=== PATIENT | female | born 1995 | race Two or more races ===

== ENCOUNTER 2023-05-28 19:30 | Emergency (ER) | payer OTHER ==
[~2023-05-28] VITALS: Ht 157.5 cm; Wt 49.9 kg
[2023-05-28] MEDS ORDERED: DEXTROSE 5 % AND 0.9 % NACL 1,000 ML IV STA (21:59)
[2023-05-28] MEDS ORDERED: ONDANSETRON HCL 2 MG/ML VIAL IV STA (22:00)
[2023-05-28] MEDS ORDERED: METOCLOPRAMIDE HCL 5 MG/ML VIAL IM STA (22:01)
[2023-05-28] MEDS ORDERED: FAMOTIDINE/PF 20 MG/2 ML VIAL IV PUSH STA (22:01)
[2023-05-28 22:32] LABS: HEMATOCRIT 39.7 % (36.0-45.00); HEMOGLOBIN 13.6 g/dL (12.0-15.00); MEAN CELL VOLUME 89.5 fL (80.00-100.00); MEAN CORPUSCULAR HEMOGLOBIN 30.5 pg (27.00-32.0); MEAN CORPUSCULAR HGB CONC 34.1 g/dl (32.0-36.0); PLATELET COUNT 310 K/uL (150-450); RED BLOOD COUNT 4.44 M/uL (4.00-6.00); RED CELL DISTRIBUTION WIDTH 13.5 % (11.5-14.5)
[2023-05-28 22:48] LABS: ALBUMIN 4.3 gm/dL (3.4-5.0); BILIRUBIN TOTAL 0.38 mg/dL (0.3-1.2); CALCIUM 9.3 mg/dL (8.5-10.1); CREATININE SERUM 0.81 mg/dL (0.55-1.02); GFR 84.82; GLOBULINA 3.6 G/DL (2.4-3.5); POTASSIUM 3.89 mEq/L (3.5-5.1); TOTAL PROTEIN 7.9 gm/dL (6.4-8.2)
== END 2023-05-28 23:53 | disposition home or self-care (01) ==
LOC: ER 19:30
DX: R55 Syncope and collapse (principal); K59.01 Slow transit constipation; E16.2 Hypoglycemia, unspecified; Z88.0 Allergy status to penicillin